=== PATIENT | male | born 1980 | race Caucasian/White ===

== ENCOUNTER 2021-03-13 19:41 | Emergency (ER) | payer OTHER ==
[2021-03-13] MEDS ORDERED: MEDROL DOSEPAK 24 MG PO (21:47)
[2021-03-13] MEDS ORDERED: ZITHROMAX250 MG PO (21:47)
[2021-03-13] MEDS ORDERED: ATROVENT-HFA12.9 GM INH (21:47)
[2021-03-13] MEDS ORDERED: DELSYM30 MG/5 ML PO (21:47)
== END 2021-03-13 22:02 | disposition home or self-care (01) ==
LOC: ER1 19:41
DX: U07.1 COVID-19 (principal); Z79.899 Other long term (current) drug therapy
CPT/HCPCS: 99283

== ENCOUNTER 2021-03-16 19:10 | Emergency (ER) | payer OTHER ==
[~2021-03-16 19:10] MED LIST: ATROVENT-HFA12.9 GM INH; DELSYM30 MG/5 ML PO; MEDROL DOSEPAK 24 MG PO; ZITHROMAX250 MG PO
== END 2021-03-16 23:00 | disposition home or self-care (01) ==
LOC: ER1 19:10
DX: Z23 Encounter for immunization (principal); U07.1 COVID-19; F17.210 Nicotine dependence, cigarettes, uncomplicated
CPT/HCPCS: 71045; 93005; 99285; M0245